=== PATIENT | female | born 1995 | race Caucasian/White ===

== ENCOUNTER 2017-03-24 09:44 | Emergency (ER) | payer SELFPAY ==
[2017-03-24] MEDS ORDERED: NORMAL SALINE 10 ML SYRINGE FLUSH IVP PRN (09:53)
[2017-03-24 09:55] VITALS: RESP 16; TEMP 96.2
--- NOTE | 2017-03-24 10:00 | PDOC ---
Female Problem HPI - General Chief Complaint: Vag Complaint/Bleed, <20WK IUP Stated Complaint: Vaginal Bleeding Date Seen by Provider: 03/24/17 Time Seen by Provider: 09:50 Source: POSITIVE: Patient Exam Limitations: POSITIVE: No limitations Nurse's Notes Reviewed & Considered: Yes - History of Present Illness Initial Comments: The patient is a 22-year-old who presents to the emergency department with complaints of vaginal bleeding. She states that her last menstrual period was sometime early to mid January. She was feeling sick a couple of weeks ago and took a test which was positive at home. She states for the past week or so she has had upper respiratory symptoms and was seen in the clinic yesterday. She was started on Zithromax. This morning when she woke up she had some vaginal bleeding which is light and brownish in color. She is not currently having any abdominal cramping or pelvic cramping. Yesterday she did have some lower abdominal cramping however this was associated with diarrhea. She has had 2 previous miscarriages with blighted ovum. She also has had 2 normal pregnancies and is approximately 5 months currently. She is not breast-feeding. - Patient Home Medications Home Medications: Home Medications Azithromycin [Zithromax] 250 mg PO DAILY #6 tab 03/23/17 - Patient Allergies Allergies/Adverse Reactions: Allergies Allergy/AdvReac Type Severity Reaction Status Date / Time codeine [Codeine] Allergy Mild RASH Verified 03/24/17 09:48 Past Medical History - heen HEENT History: Denies History Cardiovascular History: Denies History Respiratory History: Denies History Gastrointestinal History: Denies History Genitourinary History: Denies History Endocrine History: Other (please comment) Additional Endocrine History: HYPOGLYCEMIA Musculoskeletal History: Other (please comment) Prosthesis or Implant: No Additional Musculoskeletal History: pt states cyst removal to back of neck at age 5 Neurological History: Motion Sickness Blood Disorders: Denies History Psychiatric History: Anxiety Disorders History of Sexually Transmitted Diseases: No LMP: 02/03/2017 : 5 Para: 5 Cancer History: Denies History History of MDRO: No History of Other Communicable Diseases: No Alcohol Use: None Substance Use Type: None Previous Surgical History: Yes Type / Date of Surgery: cyst on neck age 5 Anesthesia Reactions: No Malignant Hyperthermia: No Significant Family History: Cancer Additional Family History: PATERNAL FAMILY H/O ASTROCYTOMA Past Medical History Reviewed: Reviewed - No Changes ROS - Limitations ROS Limitations: No Limitations Constitution: DENIES: Chills, Fever Cardiovascular: REPORTS: Denies Cardiac Symptoms Respiratory: REPORTS: Cough Productive Gastrointestinal: REPORTS: Nausea, Diarrhea. DENIES: Abdominal Pain, Vomitting Female Genitourinary Exam - General Appearance General Appearance: POSITIVE: Alert, Cooperative, No Acute Distress - HEENT HEENT: POSITIVE: Head Inspection Nml, Eyes Inspection Nml, Ears Inspection Nml, Pharynx Inspect. Nml, PERRL, EOMI - Respiratory Respiratory: POSITIVE: No Respiratory Distress, Breath Sounds Normal - Cardiovascular Cardiovascular: POSITIVE: Regular Rate and Rhythm, Heart Sounds Normal Peripheral Pulses: Dorsalis-pedis (R): 2+, Dorsalis-pedis (L): 2+ - Abdomen Abdomen: POSITIVE: Soft, Non-Tender, No Distention - Skin Skin: POSITIVE: Intact, No Rash - Extremities Extremity: Normal ROM: (All Extremities), Normal Inspection: (All Extremities) Female Genitourinary Progress - Results Reviewed by me Lab Results Reviewed: Yes Lab Results:: Laboratory Results 03/24/17 Range/Units 10:11 WBC 6.27 (4.8-10.8) 10^3/uL RBC 5.16 (4.20-5.40) 10^6/uL Hgb 16.0 (12.0-16.0) g/dL Hct 45.3 (37.0-47.0) % MCV 87.8 (81-99) FL MCH 31.0 (27-31) PG MCHC 35.3 (33-37) g/dL RDW Std Deviation 40.1 (39-50) fL RDW Coeff of Javi 12.7 (11.5-14.5) % Plt Count 237 (140-350) 10*3/uL MPV 10.2 (7.4-12.2) FL Immature Gran % (Auto) 0 (0-5) % Neut % (Auto) 56.7 (50-80) % Lymph % (Auto) 33.0 (10-50) % [place]corn % (Auto) 6.1 (5-15) % Eos % (Auto) 2.1 (0-8) % Baso % (Auto) 2.1 H (0-1) % Immature Gran # (Auto) 0 10*3/UL Neut # (Auto) 3.56 10*3/UL Lymph # (Auto) 2.07 10*3/uL [place] # (Auto) 0.38 (0.3-0.8) 10*3/UL Eos # (Auto) 0.13 10*3/UL Baso # (Auto) 0.13 10*3/UL WBC Morphology Comment Normal morphology (NORM) Plt Morphology Comment Normal morphology (NORM) RBC Morph Comment Normal morphology (NORM) Sodium 140 (135-145) meq/L Potassium 4.1 (3.8-5.2) meq/L Chloride 106 (98-112) meq/L Carbon Dioxide 25 (23-33) meq/L Anion Gap 9 (5-20) BUN 9 (7-22) mg/dL Creatinine 0.7 (0.50-1.20) mg/dL Estimated GFR > 60 (>60 ml/min/1.73m(2)) BUN/Creatinine Ratio 12.85 (6-20) Glucose 99 (78-110) mg/dL Calculated Osmolality 288.0 (267-292) mOsm/kg Calcium 9.5 (8.7-10.7) mg/dL HCG, Quant < 2.39 mIU/ML Blood Type O NEGATIVE - Patient's Progress MDM / ED Course: Blood work was obtained and the patient's quantitative beta hCG came back not detectable. She reportedly had a positive home test 2 at home last week. It appears that for whatever reason these were false positives on the home test. Ultrasound had initially been ordered however with the nondetectable beta-hCG this was canceled. Her current bleeding most likely represents menses. She was advised of these findings and was advised return to the emergency room if she develops any worsening or change in symptoms. She will follow-up with Dr. Land in 3-5 days. - Consult Counseled: POSITIVE: Patient, Family, RE: Lab Results, RE: DX, RE: Need for F/U Patient Care Time - Estimated PCT Patient Care Time (In Minutes): 20 Vital Signs - Recent Vital Signs Vital Signs: Vital Signs (Last 8 hours) Temp Pulse Pulse Resp BP Pulse Ox 03/24/17 09:47 96.2 F L 105 H 105 H 16 124/96 94 - VS Reviewed Vital Signs Reviewed: Yes Discharge Clinical Impression: Vaginal bleeding Discharge Disposition: Discharged to Home Condition: Fair Additional Instructions: The quantitative test done here in the emergency department was negative for . It appears that for a what ever reason you did have a false test at home last week. The vaginal bleeding that you are experiencing currently is most likely secondary to menses. Return to the emergency room if increased pain, heavy bleeding, any worsening or change in symptoms. Recommend follow-up with Dr. Land in 3-5 days. Follow Up With: DUC LAND [Primary Care Provider] -
[2017-03-24 10:16] LABS: BASOPHILS # (AUTO) 0.13 10*3/UL; BASOPHILS % (AUTO) 2.1 % (0-1); EOSINOPHILS # (AUTO) 0.13 10*3/UL; EOSINOPHILS % (AUTO) 2.1 % (0-8); HEMATOCRIT 45.3 % (37.0-47.0); LYMPHOCYTES # (AUTO) 2.07 10*3/uL; MEAN CORPUSCULAR HGB CONC 35.3 g/dL (33-37); MEAN CORPUSCULAR VOLUME 87.8 FL (81-99); MEAN PLATELET VOLUME 10.2 FL (7.4-12.2); MONOCYTES # (AUTO) 0.38 10*3/UL (0.3-0.8); MONOCYTES % (AUTO) 6.1 % (5-15); NEUTROPHILS # (AUTO) 3.56 10*3/UL; NEUTROPHILS % (AUTO) 56.7 % (50-80); RED BLOOD COUNT 5.16 10^6/uL (4.20-5.40)
[2017-03-24 10:18] LABS: PLATELET MORPHOLOGY COMMENT NORMAL MORPHOLOGY (NORM); RBC MORPHOLOGY COMMENT NORMAL MORPHOLOGY (NORM); WBC MORPHOLOGY COMMENT NORMAL MORPHOLOGY (NORM)
[2017-03-24 10:25] LABS: BLOOD UREA NITROGEN 9 mg/dL (7-22); BUN/CREATININE RATIO 12.85 (6-20); CALCIUM 9.5 mg/dL (8.7-10.7); EST GLOMERULAR FILTRATION > 60 (>60 ml/min/1.73m(2))
[2017-03-24 11:30] LABS: BILIRUBIN,URINE NEGATIVE (NEG); CLARITY,URINE CLEAR (CLEAR); COLOR,URINE YELLOW; GLUCOSE, URINE (UA) NEGATIVE (NEG); NITRATE,URINE NEGATIVE (NEG); OCCULT BLOOD,URINE MODERATE (NEG); PROTEIN,URINE NEGATIVE (NEG); UROBILINOGEN,URINE 0.2 EU/dL (0.2)
[2017-03-24 11:31] LABS: RBC,URINE 0-3 /hpf; URINE SAMPLE TYPE CLEAN CATCH URINE
== END 2017-03-24 11:20 | disposition home or self-care (01) ==
LOC: ER 09:44
DX: N92.6 Irregular menstruation, unspecified (principal)
CPT/HCPCS: 80048; 81001; 81003; 84702; 85025; 86900; 86901; 99282

== ENCOUNTER 2018-07-04 04:29 | Inpatient (IN) ==
[2018-07-04] MEDS ORDERED: Phenylephrine Inj 50 MCG in Sodium Chloride 0.9% vial 0.5 ML IVP PRN (04:54)
[2018-07-04] MEDS ORDERED: Nalbuphine Inj 20 MG/ML Ampule IVP PRN ×2 (04:54→14:59)
[2018-07-04] MEDS ORDERED: MISOPROSTOL 200 MCG TABLET RECTAL PRN (04:54)
[2018-07-04] MEDS ORDERED: OXYTOCIN 10 UNIT/1 ML IM PRN (04:54)
[2018-07-04] MEDS ORDERED: CefOXitin Inj 2 GM in Sodium Chloride 0.9% 100 ML IV PRN (04:54)
[2018-07-04] MEDS ORDERED: TERBUTALINE SULFATE 1 MG/1 ML SDV SUBCUT PRN (04:54)
[2018-07-04] MEDS ORDERED: CITRIC ACID/SODIUM CITRATE 30 ML CUP PO PRN (04:54)
[2018-07-04] MEDS ORDERED: Naloxone Inj 0.01 MG in Sodium Chloride 0.9% vial 1 ML IVP PRN (04:54)
[2018-07-04] MEDS ORDERED: fentaNYL Inj 100 MCG/2 ML VIAL IV PRN (04:54)
[2018-07-04] MEDS ORDERED: CALCIUM CARBONATE 500 MG (TUMS) CHEWABLE TABLET PO PRN ×2 (04:54→14:59)
[2018-07-04] MEDS ORDERED: Metoclopramide Inj 10 MG/2 ML VIAL IV PRN (04:54)
[2018-07-04] MEDS ORDERED: LIDOCAINE HCL 2 % 10 ML JELLY URO-JECT TOPICAL PRN ×2 (04:54→14:59)
[2018-07-04] MEDS ORDERED: diphenhydrAMINE 50 MG/1 ML VIAL IVP PRN ×2 (04:54→14:59)
[2018-07-04] MEDS ORDERED: BUTORPHANOL TARTRATE 2 MG/1 ML VIAL IVP PRN (04:54)
[2018-07-04] MEDS ORDERED: ePHEDrine Inj 50 MG/ML AMP IVP PRN (04:54)
[2018-07-04] MEDS ORDERED: FAMOTIDINE 20 MG/2 ML VIAL IVP PRN ×2 (04:54)
[2018-07-04] MEDS ORDERED: LIDOCAINE W/ SODIUM BICARB 0.5 ML SYR SUBD PRN (04:54)
[2018-07-04] MEDS ORDERED: Carboprost Inj 250 MCG/ML AMP IM PRN (04:54)
[2018-07-04] MEDS ORDERED: Lidocaine 1% 10 MG/ML - 20 ML VIAL SUBCUT PRN (04:54)
[2018-07-04] MEDS ORDERED: METHYLERGONOVINE MALEATE 0.2 MG/1 ML VIAL IM PRN (04:54)
[2018-07-04] MEDS ORDERED: NALOXONE 0.4 MG/1 ML VIAL IVP PRN (04:54)
[2018-07-04] MEDS ORDERED: Lactated Ringers-OB Dept 1,000 ML PRIMARY IV SCH (05:00)
[2018-07-04] MEDS ORDERED: Oxytocin 20 Units + LR 20 UNIT/1,000 ML BAG IV SCH ×3 (05:00→14:59)
[2018-07-04 05:44] LABS: Hematocrit [HCT] 38.9 % (37.0-47.0); Hemoglobin [HGB] 13.2 g/dL (12.0-16.0); MEAN CORPUSCULAR HEMOGLOBIN 31.4 PG (27-31); MEAN CORPUSCULAR HGB CONC 33.9 g/dL (33-37); MEAN CORPUSCULAR VOLUME 92.4 FL (81-99); MEAN PLATELET VOLUME 10.4 FL (7.4-12.2); RED BLOOD COUNT 4.21 10^6/uL (4.20-5.40)
[2018-07-04] MEDS: ONDANSETRON 4 MG/2 ML VIAL IVP PRN ×2 (06:27→14:45)
--- NOTE | 2018-07-04 09:08 | OB.PROGRES ---
Date of Service: 07/04/18 Time of Service: 09:00 Interval History: Pt is a 23 yo at 39 2/7 weeks by early u/s who presented this morning for elective induction at term. Her has been complicated by cigarette use , currently 4 per day. She came in with contractions every 2 minutes over the weekend, but they stopped on their own and she had no cervical change. Currently her pitocin is at 6 mU and she is feeling tightening, but no pain, with her contractions. Baby is active. Denies vag bleeding or leakage of fluid. Objective - Cervical Exam Cervical Exam: /-2/soft [place]: every 2-3 minutes Heart Rate: 120, no decelerations, moderate variability. Heart Rate Interpretation Category: Category I - Labs CBC and BMP: 07/04/18 05:42 - Vital Signs Last Taken Vital Signs: Vital Signs - Last Taken Temperature 97.5 F 07/04/18 08:15 Pulse Rate 87 07/04/18 08:15 Respiratory Rate 17 07/04/18 05:10 Blood Pressure 107/60 07/04/18 08:15 Pulse Ox 97 07/04/18 08:15 Assessment and Plan - Patient Problems (1) Elective induction of labor planned Current Visit: Yes Status: Acute - Assessment / Plan Additional Assessment/Plan Details: -GBS negative. -pt will want an epidural at some point for analgesia. -cigarette use. -anticipate normal vaginal delivery.
[2018-07-04] MEDS ORDERED: Fent/Bupiv 2mcg/0.0625% Epid 250 ML ONE (10:32)
--- NOTE | 2018-07-04 10:40 | CRNA.PROCE ---
Central Neuraxis Block Placemt - - Safety Measures: Time Out Taken, Site Verified - - Type of Block: Epidural Reason for Block: Analgesia Moniters Used During Block: EKG, SPO2, NIBP Positioning: Sitting Skin Prep Used: Betadine Skin Infiltration - Enter Amount Used in Comment Field: 1% Xylocaine (mL): Yes ( wheal) Introducer User: 18 Gauge Hustead (Epidural for HERBIE) Local Anesthetic - Enter Amount Used in Comment Field: 5.0 % Xylocaine with Dextrose (ml): Yes (5ml neg) Number of Centimeters Catheter Threaded: 4 Bioclusive Dressing Applied: Yes - - Additional Details: History obtained and chart reviewed. Requests epidural for HERBIE analgesia. Reviewed risks/benefits and she wishes to proceed. Sitting, monitors, landmarks id'd, betadine prep, skin wheal L4-5, bone encountered with 18 hustead. Site changed to L3-4. !8 hustead passed and EMILY to air first pass. Cath easily 4cm. 5ml test dose neg. Cath secured and PCEA started. Anesthesia Time - Other Weight: 78.925 kg Height: 5 ft 7 in Body Mass Index (BMI): 27.2
[2018-07-04] MEDS ORDERED: fentaNYL 2 MCG/BUPIVACAINE 0.0625%/NS 0.9% 250 ML BAG EPIDURAL SCH (10:45)
[2018-07-04] MEDS ORDERED: Sodium Chloride 0.9% 0 ML IV ONE (13:33)
[2018-07-04] MEDS ORDERED: Sodium Chloride 0.9% 1,000 ML PRIMARY IV ONE (13:36)
--- NOTE | 2018-07-04 13:36 | OB.PROGRES ---
Date of Service: 07/04/18 Time of Service: 13:15 Interval History: Pt is comfortable with her epidural. Feels a little more pelvic pressure, so thinks that there is something going on. Denies concerns. Objective - Cervical Exam Cervical Exam: 8/100/-1 [place]: every 2-4 minutes, palpating hard. AROM was completed with return of a large amount of meconium-stained fluid. Heart Rate: baseline 110s, variable decelerations with most contractions. Some of the decels appear to be more early in nature. Heart Rate Interpretation Category: Category II - Labs CBC and BMP: 07/04/18 05:42 - Vital Signs Last Taken Vital Signs: Vital Signs - Last Taken Temperature 97.5 F 07/04/18 08:15 Pulse Rate 79 07/04/18 11:30 Respiratory Rate 18 07/04/18 10:41 Blood Pressure 110/67 07/04/18 11:30 Pulse Ox 100 07/04/18 11:30 Assessment and Plan - Patient Problems (1) Elective induction of labor planned Current Visit: Yes Status: Acute - Assessment / Plan Additional Assessment/Plan Details: -IUPC placed for amnioinfusion, will give 300 cc bolus with 150 cc per hour maintenance. -GBS negative. -anesthesia aware that there is meconium present, will be here for delivery. -anticipate normal vaginal delivery.
[2018-07-04] MEDS ORDERED: KETOROLAC 15 MG/1 ML VIAL ONE (14:15)
--- NOTE | 2018-07-04 14:55 | OB.DEL.SUM ---
Delivery Note Delivery Summary: Pt is a 23 yo G5 now P3 at 39 2/7 weeks gestation by early /s. She was 3 cm/60/ -2 upon admission. Pitocin augmentation was started. An epidural was placed for analgesia. She was 6/90/-1 at 1315 and underwent AROM with return of a large amount of meconium. An IUPC was placed to facilitate amnioinfusion for repeated variable decelerations. The pt had a quick active phase of labor and began pushing around 1400. She pushed over the course of about 3-4 contractions and delivered a viable male over an intact perineum. Baby was quite vigorous and crying after delivery. Time of delivery was 1404. There was a posterior nuchal cord. The nose and mouth were suctioned with a bulb suction. To allow for delayed cord clamping, 45 seconds elapsed prior to clamping of the cord per myself. The cord was cut by the father of the baby. Baby was placed on mom's chest. Cord blood and cord gases were obtained. The placenta delivered a short time later, spontaneously and intact with a 3 vessel cord. The vagina and perineum were examined and no lacerations were noted. Apgars were 9 at 1 minute and 10 at 5 minutes. Baby weighed 6#5oz and was 19.5 inches long. Both mom and baby tolerated labor well and are in stable condition at this time. - Patient Problems (1) Elective induction of labor planned Current Visit: Yes Status: Acute
[2018-07-04] MEDS ORDERED: BENZOCAINE/MENTHOL SPRAY 56 GM BOTTLE TOPICAL PRN (14:59)
[2018-07-04] MEDS ORDERED: GLYCERIN/WITCH HAZEL 1 BOX TOPICAL PRN (14:59)
[2018-07-04] MEDS ORDERED: DIPH,PERTUSS,TET(ADACEL) VAC/PF 0.5 ML (Tdap) IM ONE (14:59)
[2018-07-04] MEDS ORDERED: diphenhydrAMINE 25 MG CAPSULE PO PRN (14:59)
[2018-07-04] MEDS ORDERED: KETOROLAC 15 MG/1 ML VIAL IVP ONE (14:59)
[2018-07-04] MEDS ORDERED: ACETAMINOPHEN 325 MG TABLET PO PRN (14:59)
[2018-07-04] MEDS ORDERED: ONDANSETRON 4 MG/2 ML VIAL IVP PRN (14:59)
[2018-07-04] MEDS ORDERED: Ondansetron ODT Tab 4 MG TAB PO PRN (14:59)
[2018-07-04] MEDS ORDERED: LANOLIN HPA 40 GM TUBE TOPICAL PRN (14:59)
[2018-07-04] MEDS: HYDROcodone-APAP 5 MG -325 MG TABLET PO PRN (17:19)
[2018-07-04 21:16] VITALS: RESP 20
[2018-07-04] MEDS: DOCUSATE 100 MG CAPSULE PO SCH (21:45)
[2018-07-05] MEDS: HYDROcodone-APAP 5 MG -325 MG TABLET PO PRN ×4 (00:50→17:32)
[2018-07-05 05:24] VITALS: BP 113/68; O2SAT 97
[2018-07-05 05:34] LABS: Hematocrit [HCT] 36.6 % (37.0-47.0); Hemoglobin [HGB] 12.3 g/dL (12.0-16.0); MEAN CORPUSCULAR HEMOGLOBIN 31.4 PG (27-31); MEAN CORPUSCULAR HGB CONC 33.6 g/dL (33-37); MEAN CORPUSCULAR VOLUME 93.4 FL (81-99); MEAN PLATELET VOLUME 10.6 FL (7.4-12.2); RED BLOOD COUNT 3.92 10^6/uL (4.20-5.40)
[2018-07-05] MEDS ORDERED: Prenatal Multivitamin Tab 1 TAB TAB PO SCH (09:00)
[2018-07-05] MEDS: DOCUSATE 100 MG CAPSULE PO SCH (09:14)
[2018-07-05] MEDS: IBUPROFEN 800 MG TABLET PO PRN ×2 (09:14→17:32)
[2018-07-05 09:15] VITALS: TEMP 97.8
[2018-07-05] MEDS ORDERED: RHO(D) IMMUNE GLOBULIN 1500 UNIT(300 mcg)SYRIN IM PRN (10:36)
--- NOTE | 2018-07-05 15:26 | PTI REPORT ---
Thank you for the referral of Lorna Engel. She was seen on 07/05/18 for an inpatient evaluation secondary to right hip pain. SUBJECTIVE: The patient is a 23-year-old female. The patient reports that she has had right hip pain since her that makes it hard to walk and hard to lay down. The patient reports that she only slept an hour and a half last night due to hip pain. The patient is post . The patient had this with her previous but she states her pain went away. The patient reports a pain level currently of 8/10 on the verbal analog scale (0=no pain, 10=worst pain). PAST MEDICAL HISTORY: Past medical history can be found in the patient's medical record. OBJECTIVE FINDINGS: The patient demonstrates anterior innominate of her right hip with the supine to sit test. Right ASIS is inferior to left ASIS. The patient presents like an SI joint instability. The patient demonstrates decreased hamstring length. The patient prefers to unload her right lower extremity and demonstrates difficulty with rolling due to pain. The patient demonstrates pain with hip abduction/adduction resisted isometrics. 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 The patient would benefit from an SI lock belt to stabilize her pelvis and continued outpatient therapy in the future. The patient's prognosis for therapy is fair. Problem List: Pain Short-Term Goals: To be met by discharge from inpatient: Patient will report 50% reduction in symptoms. Long-Term Goals: To be met following discharge from inpatient: Patient will ultimately benefit from outpatient physical therapy and an SI lock belt. TREATMENT PLAN: Patient will be seen PRN while she is here for pain relief and manual therapy. INITIAL TREATMENT: Treatment today consisted of the initial evaluation followed by passive range of motion to the right lower extremity. At this time we do not have any SI lock belts in our inventory. The patient was educated on where to buy one and was educated to come in for outpatient physical therapy for further pain relief once she is discharged from the hospital. The patient received Kinesio tape for glut-med facilitation with SI lock belt with right lower extremity with the majority of the patient's weight on her left lower extremity. The patient received taping for lumbar paraspinal inhibitions and space correction for pain. ROSEANNA
--- NOTE | 2018-07-05 17:42 | OB.PROGRES ---
Subjective Post Day: 1 Pain Management: PO Gamez Catheter: No Flatus: Yes Lochia Color: Rubra/Red Small 10-25 ml Diet: Regular Feeding Method: Exculsively Ambulating: Yes Concerns / Additional Information: No concerns except her right hip is really painful. Baby is nursing ok--just hasn't nursed since 0200 this morning. Objective - General General Appearance: POSITIVE: No Acute Distress, Cooperative - Cardiovacular Cardiovascular Exam: POSITIVE: RRR, No Murmur Edema: +1 Pedal Edema Extremities: Negative Tracie's - Bilaterally - Respiratory Respiratory Exam: POSITIVE: Clear to Auscultation - Bilaterally, Breathing Non Labored - Abdomen Bowel Sounds: Present Assesstment / Plan (1) Elective induction of labor planned Current Visit: Yes Status: Acute (2) Right hip pain Current Visit: Yes Status: Acute Assessment / Plan: -routine cares. -breast feeding going ok. -rubella immune. -rh negative-baby is A+, so mom will need rhogam prior to discharge. -d/c home tonight per her request.
== END 2018-07-05 18:50 | disposition home or self-care (01) | DRG 807 ==
LOC: OBIP 04:29
PROVIDERS: ADMIT Family Medicine; ATTEND Family Medicine